=== PATIENT | female | born 1995 | race Caucasian/White ===

== ENCOUNTER 2020-07-11 16:54 | Inpatient (IN) | payer OTHER, SELFPAY ==
[2020-07-11] VITALS (15 sets, daily range): BP systolic 96–120; BP diastolic 54–84; PULSE 68–101; RESP 20; TEMP 36.7–37.1; BMI 24.9
[2020-07-11 17:30] LABS: Basophils Percent Auto 0.4 % (0.2-1.2); Eosinophils Absolute Auto 0.1 K/mm3 (0-0.3); Eosinophils Percent Auto 0.7 % (0-4.4); Hematocrit 39.3 % (37.0-47.0); Hemoglobin 12.3 g/dL (12.0-15.0); Immature Granulocyte Percent A 1.8 % (0-0.5); Lymphocytes Absolute Auto 1.92 K/mm3 (0.9-3.2); Mean Corpuscular HGB Conc 31.3 g/dl (32-36); Mean Corpuscular Hemoglobin 29.2 pg (26-34); Mean Corpuscular Volume 93.3 fl (80-100); Mean Platelet Volume 11.5 fl (7.4-10.4); Monocytes Absolute Auto 0.7 K/mm3 (0.1-0.6); Monocytes Percent Auto 6.4 % (2.6-8.5); Neutrophils Absolute Auto 8.3 K/mm3 (1.3-6.7); Neutrophils Percent Auto 73.7 % (45.5-73.1); Platelet Count Result 141 k/mm3 (150-375); Red Blood Count 4.21 M/mm3 (4.2-5.4); Red Cell Distribution Width 15.5 % (11.5-14.5); White Blood Count 11.3 K/mm3 (4.5-10.0)
[2020-07-11] MEDS: DINOPROSTONE 10 MG VAG INSERT VAGINAL (17:38)
--- NOTE | 2020-07-11 18:30 | LDADM ---
This patient, Mary Jane Burks, was admitted to Labor/Delivery/Recovery 104 on 07/11/20 at 16:54. Plans for labor, pain management and were discussed with patient. Patient/family oriented to hospital policies and general routines including ID bracelet, bed and alarms, visiting hours, pain management, procedures, bathroom and other care routines, personal items, smoking policy, room service/diet and guest tray routines, security routines, and visiting hours. Patient/Family are encouraged to report perceived risks to care and to ask questions if they do not understand what they are told or what they should do. See OBIX for further documentation.
[2020-07-11] MEDS: fentaNYL CITRATE INJ (*CRX) 100 MCG/2 ML VIAL 50 MCG IV PUSH (23:23)
[2020-07-11] MEDS: LACTATED RINGERS 1,000 ML 125 ML IV CONT (23:23)
[2020-07-12] VITALS (86 sets, daily range): BP systolic 80–202; BP diastolic 30–189; PULSE 62–263; RESP 16–20; TEMP 36.8–37.4; O2SAT 88–100
[2020-07-12] MEDS: fentaNYL CITRATE INJ (*CRX) 100 MCG/2 ML VIAL 50 MCG IV PUSH ×3 (01:14→04:11)
[2020-07-12] MEDS: OXYTOCIN 30 UNITS/NS 500 ML 30 UNITS/500 ML BAG IV CONT (05:34)
[2020-07-12] MEDS: fentaNYL CITRATE INJ (*CRX) 100 MCG/2 ML VIAL IV PUSH (05:40)
[2020-07-12] MEDS: LACTATED RINGERS 1,000 ML 125 ML IV CONT ×2 (05:48→06:34)
[2020-07-12] MEDS: PHENYLEPHRINE 1,000 MCG/10 ML SYRINGE 1000 MCG (06:50)
--- NOTE | 2020-07-12 06:50 | WPDANESEPP ---
Anes - Eval Pre Procedure Procedure: labor epidural Date/Time: 07/12/20 06:51 Preop Diagnosis: pain during labor Pre Op Diagnosis: iol Patient Data Age: 25 Gender: F Height: 1.68 m Weight: 70 kg Last Vital Signs Temp 37.1 C 07/12/20 06:30 Pulse 105 H 07/12/20 06:50 Resp 18 07/12/20 05:04 BP 94/68 L 07/12/20 06:50 Pulse Ox 98 07/12/20 06:47 Allergies Allergy/AdvReac Type Severity Reaction Status Date / Time No Known Allergies Allergy Verified 07/11/20 17:14 Home Medications Medication Instructions Recorded Confirmed Type PNV [id number] acid 1 tablet PO DAILY 06/10/20 07/11/20 History [Complete ] Laboratory Tests 07/11/20 07/11/20 07/11/20 17:25 17:25 17:25 WBC 11.3 K/mm3 H K/mm3 (4.5-10.0) RBC 4.21 M/mm3 M/mm3 (4.2-5.4) Hgb 12.3 g/dL g/dL (12.0-15.0) Hct 39.3 % % (37.0-47.0) MCV 93.3 fl fl (80-100) MCH 29.2 pg pg (26-34) MCHC 31.3 g/dl L g/dl (32-36) RDW 15.5 % H % (11.5-14.5) Plt Count 141 k/mm3 L k/mm3 (150-375) MPV 11.5 fl H fl (7.4-10.4) Immature Gran % (Auto) 1.8 % H % (0-0.5) Neut % (Auto) 73.7 % H % (45.5-73.1) Lymph % (Auto) 17.0 % L % (18.3-44.2) [place] % (Auto) 6.4 % % (2.6-8.5) Eos % (Auto) 0.7 % % (0-4.4) Baso % (Auto) 0.4 % % (0.2-1.2) Lymph # (Auto) 1.92 K/mm3 K/mm3 (0.9-3.2) [place] # (Auto) 0.7 K/mm3 H K/mm3 (0.1-0.6) Eos # (Auto) 0.1 K/mm3 K/mm3 (0-0.3) Baso # (Auto) 0.0 K/mm3 K/mm3 (0.0-0.1) Abs Immat Gran (auto) 0.20 K/mm3 H K/mm3 (0.00-0.031) Absolute Neuts (auto) 8.3 K/mm3 H K/mm3 (1.3-6.7) Absolute Nucleated RBC 0.0 K/mm3 K/mm3 (0.0-0.012) Nucleated RBC % 0.0 % % (0.0-0.2) RPR Pending Blood Type AB Positive Antibody Screen Negative Patient hx anesthesia problems: none Family hx anesthesia problems: none PMFSH Social History Social History Smoking status: Never smoker Substance use: never Gender identity (if verbalized by the patient): Female Spiritual care concerns: No Exam Day of Procedure 07/12/20 06:51
[2020-07-12] MEDS: FAMOTIDINE 20 MG/2 ML VIAL IV PUSH (07:10)
--- NOTE | 2020-07-12 08:42 | WPDOBADMIT ---
Obstetrics - Admit Note Admission Note: record reviewed. Additions to the history and/or subsequent changes in the physical findings follow. 25 y/o G1 at 40 4/7 weeks here for induction. Cervidil placed last night. SROM this morning, Cervidil withdrawn. Now receiving oxytocin. Comfortable with epidural. GBS neg. AVSS NST reactive TOCO: contractions every 2-4 min ABD soft, nontender, gravid, vertex. EXT nontender Cervix complete / +2, vertex A: IUP at 40 4/7 weeks, here for induction. P: Will begin pushing. Anticipate .
[2020-07-12 08:55] LABS: Rapid Plasma Reagin Non-Reactive (NonReactive)
--- NOTE | 2020-07-12 10:52 | PM.OBPRVD ---
OB - Delivery Note Procedure Delivery date: 07/12/20 Procedure: Induction of labor with Induction method: per pitocin protocol and per cervidil protocol Delivery monitor: external FHT and external uterine Route of delivery: Delivery repair: vicryl (3-0) Specimen: Yes (cord blood) Quantitative Blood Loss (ml): 240 Anesthesia type: Epidural Disposition: PACU Complications: None Narrative: 25 y/o at 40 4/7 weeks gestation who presented to the hospital for induction of labor. Cervidil was placed overnight. She had SROM (clear fluid) and the Cervidil was withdrawn. Oxytocin was administered intravenously. She received an epidural for pain control. Her labor progressed and her cervix dilated completely. She pushed with good effort and delivered the 's head to the perineum, followed by the body. The nose and mouth were bulb suctioned. After a delay, the cord was clamped and cut. The was handed off the field. Cord blood was collected. The placenta delivered spontaneously and was grossly normal in appearance. The usual 3 vessel cord was noted. A distal vaginall laceration was sustained. This was reapproximated using 3 0 Vicryl in the usual layered fashion. Excellent hemostasis resulted as did excellent reapproximation of the normal anatomy. Needle and instrument counts were correct. The patient was taken to recovery room in stable condition. The went to the nursery in stable condition. I was present and scrubbed for the entire delivery. Baby Date of : 07/12/20 Time of : 10:33 Weeks of gestation at delivery: 40 gender: Female Weight (pounds): 7 Weight (ounces): 8 presentation: vertex position: Left Occiput Anterior score one minute: 4 score five minutes: 7
--- NOTE | 2020-07-12 10:54 | PM.OBDSVD ---
DS: Admitting Diagnosis Admitting Diagnosis Admitting Diagnosis: IUP at 40 4/7 weeks DS: Discharge Diagnosis Discharge Diagnosis (1) (normal spontaneous vaginal delivery): Code(s): O80 - Encounter for full-term uncomplicated delivery Status: Acute OB - DS: Summary OB Procedures : None OB Procedures Intrapartum: Spontaneous Vag Delivery OB Procedures: : None DS: Data Data Completed and Pending Labs on day of discharge: Labs from last 24 hours 07/11/20 07/11/20 07/11/20 17:25 17:25 17:25 WBC 11.3 H RBC 4.21 Hgb 12.3 Hct 39.3 MCV 93.3 MCH 29.2 MCHC 31.3 L RDW 15.5 H Plt Count 141 L MPV 11.5 H Immature Gran % (Auto) 1.8 H Neut % (Auto) 73.7 H Lymph % (Auto) 17.0 L [place] % (Auto) 6.4 Eos % (Auto) 0.7 Baso % (Auto) 0.4 Lymph # (Auto) 1.92 [place] # (Auto) 0.7 H Eos # (Auto) 0.1 Baso # (Auto) 0.0 Abs Immat Gran (auto) 0.20 H Absolute Neuts (auto) 8.3 H Absolute Nucleated RBC 0.0 Nucleated RBC % 0.0 RPR Non-reactive Blood Type AB Positive Antibody Screen Negative Discharge Plan Discharge Attending physician on discharge: Rosendo Lofton Discharging Clinician: Rosendo Lofton Patient Disposition: Home, Self-Care Activity: pelvic rest Diet: regular Discharge Instructions: Education: Mom and Baby Guide Given to: Mother Follow-Up: Call your delivering provider's office for an appointment to be seen in: 6 Weeks Mom and baby should come to the [facility] for the follow-up appointment. Appointment Date/Time: July at 11:00 am What to expect at your follow-up visit: Blood Pressure Check Physical Assessment Call [phone] if you are unable to keep your appointment time. BREAST CARE: * Wear a snug supportive bra. * For engorgement discomfort: Breast Feeding: * Apply warm moist washcloths * Express milk as needed to relieve engorgement * Wear loose clothing * For sore nipples: * Identify correct latch-on * Apply warm moist washcloths before and after nursing * Air dry nipples after nursing * May apply Lansinoh cream to nipples EPISIOTOMY/PERINEAL CARE: * Until bleeding stops, use your ji bottle after urinating * Change your pad frequently throughout the day * You may take sitz baths several times a day (fill your bathtub with warm water and soak for 20 minutes.) Do NOT bathe in the water * No tub baths until seen by your physician - You may shower ACTIVITY: * Rest as much as possible. * Do not exercise or lift anything heavier than your baby (such as laundry or other children.) * Avoid stairs or driving as much as possible. * Do not put anything into the vagina. No douching, tampons, or sexual activity until seen by physician. NOTIFY PHYSICIAN IF YOU HAVE ANY QUESTIONS OR IF ANY OF THE FOLLOWING SYMPTOMS OCCUR: * If your vaginal area becomes red, swollen, or more painful than what you have experienced in the hospital. * If your vaginal bleeding becomes foul smelling. * If your vaginal bleeding becomes more heavy than a period or if your bleeding changes from pink to bright red. However, you may pass an occasional walnut-sized clot once or twice for the first week . * If you experience a sharp, shooting pain in your calves. * If you discover a hard, reddened area on your breast or if you experience flu-like symptoms. DIET: * Eat regular, well-balanced meals. * Drink plenty of fluids daily. If , drink to thirst. Call or return if temperature above 100.4? F, increased abdominal pain, increased vaginal bleeding or any new problems. Patient Instructions: Vaginal Delivery (DC) Stand Alone Forms: General Discharge Information Follow-up/Referrals: Rosendo Lofton MD [Physician] - 6 Weeks Discharge Medicatio
[2020-07-12] MEDS: OXYTOCIN 30 UNITS/NS 500 ML 30 UNITS/500 ML BAG 125 UNITS IV CONT (11:15)
[2020-07-12] MEDS: IBUPROFEN 600 MG TABLET PO ×2 (12:12→18:35)
[2020-07-12] MEDS: BENZOCAINE 20% AER SPR (*SP) 56 GM CAN 1 SPRAY TOPICAL (12:12)
[2020-07-12] MEDS: WITCH HAZEL 40 PADS 1 PAD TOPICAL (12:13)
[2020-07-13] MEDS: IBUPROFEN 600 MG TABLET PO ×2 (00:15→07:19)
[2020-07-13 05:45] VITALS: BP 107/65; PULSE 71; RESP 16; TEMP 36.4
[2020-07-13 05:52] LABS: Hematocrit 32.5 % (37.0-47.0); Hemoglobin 10.3 g/dL (12.0-15.0)
--- NOTE | 2020-07-13 07:10 | WPDANLDPN2 ---
Anes-Prog Note L&D Date/Time: 07/13/20 07:10 Comfortable throughout: labor and delivery Neuraxial method: epidural Epidural/Spinal procedure site: clean & non-tender Neuro status: Neuro function grossly intact. Cardiovascular status: normal Respiratory status: normal Airway patency: baseline Mental status: baseline Post-Op hydration status: normal Vital Signs: Last Vital Signs Temp 36.4 C 07/13/20 05:45 Pulse 71 07/13/20 05:45 Resp 16 07/13/20 05:45 BP 107/65 07/13/20 05:45 Pulse Ox 99 07/12/20 13:45 Pain score (VAS): 03/14 I/O: Intake & Output 07/12/20 07/12/20 07/13/20 15:59 23:59 07:59 Output Total 1440 Balance -1440 Post-procedural complaints: none Patient feedback: Patient satisfied with anesthetic care.
[2020-07-13] MEDS: WITCH HAZEL 40 PADS 1 PAD TOPICAL (07:20)
[2020-07-13] MEDS: MULTIVIT/MIN/PREN/FOL AC/IRON TABLET 1 TAB PO (07:20)
[2020-07-13] MEDS: BENZOCAINE 20% AER SPR (*SP) 56 GM CAN 1 SPRAY TOPICAL (07:20)
[2020-07-13 07:30] VITALS: BP 91/57; PULSE 79; RESP 16; TEMP 37.4; O2SAT 99
[2020-07-13 08:30] VITALS: PULSE 71; RESP 16; O2SAT 99
--- NOTE | 2020-07-13 08:48 | PM.OBPNVD ---
OB - PN: Subj Subjective Date/time seen: 07/13/20 08:48 Narrative: Pain OK. OB - PN: Obj Data Labs CBC & Chem 7: 07/13/20 05:41 Labs: Laboratory Results - last 24 hr 07/11/20 07/13/20 17:25 05:41 Hgb 10.3 L Hct 32.5 L RPR Non-reactive OB - PN A/P Plan Comments: A: PPD#1, doing well. P: Routine care. Exam Psych: Other: AVSS ABD soft, nontender, fundus firm EXT nontender
--- NOTE | 2020-07-13 11:30 | PC.NURSE ---
Consulted with patient, mother has infant to breast in cradle. is latched deeply by all measures, mother denies discomfort. Mother states has been eager to wake and latch for feedings. Reviewed infant feeding cues, frequencies, duration of feedings, feeding elimination flow sheet, and signs of adequate intake. Demonstrated stimulation techniques to wake infant for feeding. Reviewed positioning/alignment in cross cradle, holding breast in ?U? hold and guided asymmetrical latch on. nursed eagerly, with steady draws and frequent swallowing noted. Reviewed signs of a correct latch, effective nursing and suck swallow ratio. Infant was able to maintain latch without discomfort to mother. Demonstrated how to adjust latch more deeply while feeding. Nipple care reviewed of lanolin after feedings, warm compresses and gel pads as needed. Suggested mother stimulate while feeding to increase stimulate, increase intake and to assist with maintaining deep latch. Mother reports she wishes discharge at 24 hours. Mother is feeding as required and waking to feed if needed. Infant has had at least 8 effective feedings in the past 24 hours, and is currently meeting outcomes for weight, output, jaundice and feeding frequencies. Mother states she feels confident to continue effective at home. Reviewed transition to breast milk, signs of adequate intake, and engorgement/relief. Instructed to call ICP if intake/output less than required. Reviewed regular medications mother is taking. Information provided per Marilyn. Reviewed community resources on the [facility] website and in the Mom/Baby guide. Information on outpatient services provided. Mother has no further questions at this time.
[2020-07-13 12:00] VITALS: PULSE 71; RESP 16; O2SAT 99
== END 2020-07-13 13:22 | disposition home or self-care (01) | DRG 560 ==
LOC: ANHLDR 07-12 13:27 → ANHOB2 07-12 13:34
PROVIDERS: Admitting Provider Obstetrics & Gynecology; Visit Provider Obstetrics & Gynecology
DX: O71.4 Obstetric high vaginal laceration alone (principal); Z37.0 Single live birth; Z3A.40 40 weeks gestation of pregnancy
CPT/HCPCS: 36415; 84112; 85014; 85018; 85025; 86592; 86850; 86900; 86901; A9270; J2370; J2590; J3010; J7120

== ENCOUNTER 2020-07-15 08:40 | Outpatient (CLI) | payer OTHER, SELFPAY ==
[2020-07-15] VITALS (9 sets, daily range): BP systolic 111–133; BP diastolic 73–86; PULSE 58–90; RESP 16–18; TEMP 36.8; O2SAT 100
--- NOTE | 2020-07-15 08:56 | OBADM ---
This patient, Mary Jane Burks, admitted to the OB room 115 as a clinical outpatient for c/o headache. Patient/family oriented to hospital policies and general routines including ID bracelet, bed and alarms, visiting hours, pain management, procedures, bathroom and other care routines, personal items, smoking policy, room service/diet, and visiting hours. Patient/Family are encouraged to report perceived risks to care and to ask questions if they do not understand what they are told or what they should do.
--- NOTE | 2020-07-15 09:00 | PC.NURSE ---
Dr. Lofton and Harley Delgado UPSTREAM BIOMANUFACTURING TECHNICIAN both on unit and informed of this pt's arrival with headache that improves with laying flat. informed of BP. Orders received.
--- NOTE | 2020-07-15 09:11 | PC.NURSE ---
Jeanna Liriano EVENT SALES ASSISTANT in to see pt. Discussed options regarding headache and epidural blood patch procedure. Pt has decided she would like to proceed with the epidural blood patch. Anesthesia will be back. Orders received.
--- NOTE | 2020-07-15 09:20 | PC.NURSE ---
Pt given Pepsi and water with instructions to increase fluids.
--- NOTE | 2020-07-15 09:23 | PC.NURSE ---
Assisted pt with sidelying position for nursing infant.
[2020-07-15] MEDS: ONDANSETRON HCL ODT 4 MG TABLET PO (09:32)
--- NOTE | 2020-07-15 10:20 | PC.NURSE ---
Harley Delgado STATE FARM AGENT here and explained the physiology of a spinal headache and options for treating spinal headache, and risks of epidural blood patch. Pt desires to go ahead with epidural blood patch. Pt assisted to dangle position, feet placed in bedside chair. Left antecubital space was assessed and then cleansed by STATE FARM AGENT student for blood draw.
--- NOTE | 2020-07-15 10:34 | PC.NURSE ---
Epidural blood patch completed and pt assisted to laying supine with knees slightly brought up. Headache is down to a 1 out of 10. C/O low back pressure discomfort she rates as a 3 out of 10. Pt instructed to stay laying flat for the next 30 mins. Pt was also instructed by DISH MACHINE OPERATOR to limit lifting to weight of baby only, limit bending, or other activity that could break the blood patch free and cause return of symptoms. Pt verbalizes understanding.
--- NOTE | 2020-07-15 10:39 | P.PCNANE_ITS ---
Anes - Epidural Blood Patch PN Date/Time: 07/15/20 10:39 Consent: I have discussed with the patient/family/POA, the rationale of a lumbar epidural autologous blood patch for the treatment of post-dural puncture headache (spinal headache), including associated potential risks, benefits, comp lications and side effects. I have also discussed more conservative treatment options such as intravenous hydration, caffeine and non-prescription analgesics. The patient/family/POA, understand(s) and wish(es) to proceed with epidural autologous blood patch as treatment for the patient's post-dural puncture headache. Time-Out: A pre-procedural Time-Out was completed immediately before starting the procedure and confirmed: Patient Identification, Site, Procedure, Patient Position and the Availability of Requisite Equipment. Clinical Indications: 7/10 frontal headache, improves with lying flat, photophobia Epidural Insertion Note Patient position: sitting Skin prep: chlorhexidine Needle: 18 gauge Tuohy-Schliff Technique: loss of resistance (to air) Skin anesthesia: lidocaine 1% Observations: tolerated well Complications: none and other (VSS stable throughout, 133/86, HR 60, SPO2 100%, headache improved to 1/10, c/o lumbar pressure)
--- NOTE | 2020-07-15 11:26 | PC.NURSE ---
Had pt start gradually raising HOB up.
--- NOTE | 2020-07-15 11:59 | PC.NURSE ---
Harley Delgado CRNA informed pt has eaten and been up- rates headache a 2 out of 10 being upright. Low back and hip pressure/cramping is a 3-4 out of 10. OK to discharge to home.
--- NOTE | 2020-07-15 12:03 | PC.NURSE ---
Dr. Lofton returned page and informed of the relief pt received after epidural blood patch. OK with anesthesia for discharge. Discharge order received.
== END 2020-07-15 12:50 | disposition home or self-care (01) ==
LOC: ANHOBOP 08:44 → ANHOBPP 08:44
PROVIDERS: Visit Provider Obstetrics & Gynecology
DX: O13.9 Gestational [pregnancy-induced] hypertension without significant proteinuria, unspecified trimester (principal); Z3A.00 Weeks of gestation of pregnancy not specified
CPT/HCPCS: 99199; 62273; A9270